=== PATIENT | female | born 1970 | race Caucasian/White ===

== ENCOUNTER 2016-12-19 16:05 | Emergency (ER) | payer SELFPAY ==
[~2016-12-19] VITALS: Ht 175.3 cm; Wt 118.2 kg
[2016-12-19 16:10] VITALS: BP 85/60; PULSE 57; RESP 18; O2SAT 94
[2016-12-19] MEDS ORDERED: HYDROmorphone 1 mg/mL Inj IVPUSH PRN ×2 (16:30→17:20)
[2016-12-19] MEDS ORDERED: Ondansetron 2 mg/mL 2 mL Inj IVPUSH PRN (16:30)
--- NOTE | 2016-12-19 16:36 | ED.REPORT ---
HPI-Extremity Problem Upper Date of Service Dec 19, 2016 ED Provider: Bryn Dsouza PA-C Dayna is otherwise healthy 46-year-old female presenting the emergency department with a chief complaint of right wrist pain. Patient reports slipping and falling down her RV steps, catching herself with her right hand. Complains of pain and deformity in the right forearm. She has difficulty moving her fingers. Denies striking her head, losing consciousness, neck pain weakness or numbness in her limbs. Nursing Notes Stated Complaint: RIGHT WRIST PAIN Chief Complaint: Extremity Trauma Nursing Notes Reviewed: Yes Allergies: Coded Allergies: adhesive (Verified Allergy, Severe, 12/19/16) Uncoded Allergies: MINT (Allergy, Severe, 12/19/16) Scheduled PRN oxyCODONE-Acetaminophen 5-325 mg (oxyCODONE-Acetaminophen 5-325 mg) 1 Each Tablet 1-2 TAB PO Q6H PRN PRN For Pain General Time Seen by MD: 16:21 Chief Complaint Wrist injury right Hx Obtained From: Patient Arrived By: Walk-in Location: : Wrist right Quality: Painful Severity: Current: Moderate Exacerbated by: Movement Similar Sx Previous: No Past Medical History Past Medical History Hypothyroid Smoking History Unknown if Ever Smoker Ambulatory Status Independent Review of Systems Review of Systems Note: Negative unless stated otherwise in history of present illness Musculoskeletal: Reports: Extremity pain Complete sys rev & neg: except as marked. Physical Exam General: Well appearing, well developed, well nourished, no acute distress. Left elbow: Normal to inspection, nontender. Left forearm: Dorsally displaced, tender Left wrist/hand: Minimal active range of motion due to pain. Radial pulse 2+. Sensation and brisk capillary refill intact in distal phalanges. Head: Atraumatic, normocephalic. Eyes: No scleral icterus or injection. No discharge. Vision grossly intact. ENT: Voice clear, hearing grossly intact. Respiratory: Regular rate and rhythm. Breath sounds present, clear to auscultation and equal bilaterally. No respiratory distress. No increased work of breathing, speaks in complete sentences. Cardiovascular: Regular rate and rhythm, without murmur, gallop or rub. No pedal edema. Gastrointestinal: Abdomen flat and non-tender without guarding or rebound. Bowel sounds normoactive. Skin: Warm and dry. Neurological: Grossly nonfocal. Psychological: Alert and oriented. Speech appropriate, linear and logical. Behavior appropriate. Initial Vital Signs Vital Signs (First) Date Time Temp Pulse Resp B/P Pulse Ox O2 Delivery O2 Flow Rate FiO2 12/19/16 16:10 35.2 57 18 85/60 94 Room Air Hypotensive Initial VS: Reviewed Interpretation & Diagnostics X-Ray Interpretation Xray Interpretation: PROCEDURE: X-RAY RIGHT FOREARM, TWO VIEWS ([id number]) IMPRESSION: 1. Comminuted, intra-articular distal radius fracture. 2. Mildly displaced triquetral fracture. 3. Ulnar styloid process fracture. Interpretation / Wet Read by: Interpret - Radiologist Procedures Procedure Notes: Reduction Right Wrist: Time: 18:25 Procedure Performed by: ED physician Consent / Setup: Informed consent provided, Consent from patient, Time-out Performed, apply pressure to the dorsum of the right hand and wrist, C Arm used, Procedural Sedation/Analgesia: Sedation: Ketamine Neurovascular: Intact pre-procedure, Intact post-procedure Post-Procedure / Complications: Reduced per examination, Procedure successful, X-ray disloc reduced, Condition improved Proced Mod Sedation/Analgesia Time: 18:20 Procedure Performed by: ED physician Sedation Time: 10 - 15 min Consent / Setup: Consent from patient, Time-out performed, Hand hygiene observed Indication: Fracture reduction Preparation: physical science teacher applied, Pulse oximeter applied, Constant attendance, IV access established, Eval last meal time, Supplemental oxygen, Procedure explained, Suction available, End tidal CO2 mon applied VS Prior to Procedure: All vital signs normal Mallampati: Class & Anatomy: 1 tonsils/uvula/s palate CVS/Resp Exam: Normal breath sounds, Normal heart sounds Neuro Exam: Alert, No acute distress, Responsive Sedation: Sedation: Ketamine (slow push) ASA Classification: 1 normal healthy patient Response During Procedure: Handled secretions adeq, Maintained airway well, Oxygenation stable, Sedation appropriate, Vital signs stable Complications During/After: None Reversal: None required Mental Status After Procedure: Alert, Oriented X3, Response to verbal stim, Response to painful stim Post-Procedure: Alert prior to discharge, Pt rtn pre-proc baseline, Vital signs normal Attestation: I performed procedure, I performed sedation Splint Application - Fx Mgt Time: 18:26 Procedure Performed by: Risk And Compliance Analytics Director Precise Anatomic Location: right wrist Type of Immobilization: Sugar tong Definitive Fracture Care: Pain control, Splint Post-Procedure / Complications: Cap refill normal, Post splint vascular nl, Post splint neuro nl, Condition improved, Tolerated procedure well, Patient stable Splint Post-Application Eval Extremity Condition: Cap refill < 2 sec, Distal sensation intact, Distal motor Intact, No compartment syndrome Re-Eval/Medical Decision Med Decision/Clinical Course Procedural female with a history of hypothyroidism or department with right wrist pain secondary to a fall down the stairs of her RV. She reports slipping and falling, catching herself on an outstretched arm. The plans of pain in the right wrist, aggravated by moving her digits. Denies striking her head, hurting her neck. Physical examination reveals some dorsal deformity in the distal right forearm. Limited active range of motion in the wrist and fingers. Radial pulse 2+, sensation and capillary refill intact in distal phalanges. X-ray reveals wrist fracture. I discussed the case with Dr. babin, who met with and examined the patient. The fractures reduced under sedation per the note above and splinted. Neurovascularly intact afterwards. Postreduction x- rays show good reduction. Patient is discharged with instructions for [id number] analgesia, small amount of Percocet is dispensed as well as a prescription for a small amount more with precautions. Patient is to [facility], returning to [place] in the morning. She is provided with a referral to Dr. Dumont, but encouraged to seek orthopedic care closer to home. Provide emergent return precautions. Patient verbalizes understanding of a consent to plan. Consultation : Referral / Consult Name: James Beasley MD Consulted With: Orthopedic Call Returned at: 18:00 Note: Consult with Dr. Beasley, who recommends attempting to reduce, put in a sugar tong splint and have the patient follow up with Dr. Dumont. Counseled Regarding: Diagnosis, Lab results, Need for follow-up, When/why to return to ED Discharge & Departure Impression: Primary Impression: Right wrist fracture Encounter type: initial encounter Fracture type: closed Qualified Code: S62.101A - Fracture of unspecified carpal bone, right wrist, initial encounter for closed fracture Disposition: Home Discharge Condition All VS Reviewed: Yes Condition: Critical Patient Instructions: Splint Care (ED) Additional Instructions: Thank you for seeking care at the emergency room. Your X-ray showed that you fractured your wrist. Keep it in a splint until you follow up with the referred orthopedic doctor. You are welcome to contact an orthopedic surgeon closer to your home if that is more convenient for you. You may have to work through your primary care provider. Please arrange to be seen in about one week. Keep the affected limb elevated as much as possible for the next several days. The pain is best treated with 400 mg of ibuprofen (Advil, Motrin) every 6 hours , or 1000 mg of acetaminophen (Tylenol) every 6 hours. These drugs can be taken at the same time for more severe pain. I will send you with a small amount of oxycodone/acetaminophen 5/325 mg which can be SUBSTITUTED for the Tylenol to treat more severe pain. Do not take them together, and do not drink alcohol or operate a vehicle within 4 hours of taking this medication. I will write you a prescription for a small amount more. You should return to the Emergency Department immediately if you develop fevers , increasing pain, lightheadedness, weakness or any other concerning signs or symptoms. Thank you for letting us partake in your care today. Referrals: NOPCP (PCP) Royce Dumont Attestation Portions of this note were transcribed by Kaira Amador. I, Dr. Babin personally performed the history, physical exam and medical decision-making; I reviewed and confirmed the accuracy of the information in the transcribed note. Signed by: Thuy Means, 12/19/16 copies to: Royce Dumont Seth PA-C Dec 19, 2016 16:36 Sary Amador Dec 19, 2016 18:15
--- NOTE | 2016-12-19 17:03 | DRSVH ---
PROCEDURE: X-RAY RIGHT FOREARM, TWO VIEWS ([id number]) INDICATIONS: forearm pain, deformity TECHNIQUE: 2 views of the forearm were acquired. COMPARISON: None. FINDINGS: Comminuted fracture of the distal radius is noted. Fracture is displaced dorsally with padma saundra angulation. Mildly displaced triquetral fracture noted. Mildly displaced ulnar styloid process fr acture noted. Bones: No fractures or dislocations. No suspicious bony lesions. Soft tissues: No suspicious soft tissue calcifications or masses. IMPRESSION: 1. Comminuted, intra-articular distal radius fracture. 2. Mildly displaced triquetral fracture. 3. Ulnar styloid process fracture. Dictated by: Mel Menchaca MD, PhD on 12/19/2016 at 17:00 Approved by: Mel Menchaca MD, PhD on 12/19/2016 at 17:01
[2016-12-19] MEDS ORDERED: HYDROmorphone 0.5 mg/0.5 mL iSecure Syringe IVPUSH PRN (17:23)
[2016-12-19] MEDS ORDERED: Ketamine 100 mg/mL 5 mL Inj IV ONE (17:35)
[2016-12-19] MEDS ORDERED: OXYC-474 PO (18:46)
[2016-12-19 18:54] VITALS: BP 152/84; PULSE 75; RESP 16; O2SAT 93
--- NOTE | 2016-12-19 19:24 | DRSVH ---
PROCEDURE: X-RAY RIGHT FOREARM, TWO VIEWS ([id number]) INDICATIONS: postreduction TECHNIQUE: 2 views of the forearm were acquired. COMPARISON: [facility], CR, XR FOREARM 2VW RT, 12/19/2016, 16:48. FINDINGS: Bones: Patient status post closed reduction of comminuted, intra-articular distal radial fracture. There is near-anatomic alignment of the distal radial fracture following closed reduction. Ulnar sty loid process fracture noted. Soft tissues: No suspicious soft tissue calcifications or masses. IMPRESSION: Near-anatomic alignment of distal radial fracture following closed reduction. Dictated by: Mel Menchaca MD, PhD on 12/19/2016 at 19:21 Approved by: Mel Menchaca MD, PhD on 12/19/2016 at 19:22
[2016-12-19 19:30] VITALS: BP 127/67; PULSE 70; RESP 14
[2016-12-19] MEDS ORDERED: _oxyCODONE/APAP 5-325 mg Tablet PO PRN (19:35)
[2016-12-19] MEDS ORDERED: OXYC1TAB24 PO (19:38)
== END 2016-12-19 20:09 | disposition home or self-care (01) ==
LOC: SED 16:05
DX: S52.501A Unspecified fracture of the lower end of right radius, initial encounter for closed fracture (principal); W10.8XXA Fall (on) (from) other stairs and steps, initial encounter; Y93.89 Activity, other specified; Y92.9 Unspecified place or not applicable; Y99.8 Other external cause status
CPT/HCPCS: 25605; 73090; 76000; 94799; 96374; 96375; 99152; 99285; J1170; J1885; J2405